=== PATIENT | female | born 1955 | race Caucasian/White ===

== ENCOUNTER 2016-12-31 11:00 | Outpatient (CLI) | payer OTHER ==
--- NOTE | 2016-12-31 11:23 | DIAGNOSTIC IMAGING REPORT ---
PROCEDURE: XR SHOULDER 2 OR MORE VW-LEFT INDICATION: L SHOULDER AND CLAVICLE PAIN TECHNIQUE: Three views. COMPARISON: Left shoulder films 01/10/2014 FINDINGS: Old healed clavicle fracture. The healed humeral neck fracture is in anatomic alignment. No soft tissue calcifications. IMPRESSION: 1. Normal left shoulder. Old healed fractures.
== END 2016-12-31 23:00 ==
LOC: XR SRH 11:00
DX: M25.512 Pain in left shoulder (principal)